=== PATIENT | male | born 1985 | race Caucasian/White ===

== ENCOUNTER 2023-02-03 08:01 | Emergency (ER) | payer MEDICAID ==
[~2023-02-03] VITALS: Ht 182.9 cm; Wt 83.6 kg
[~2023-02-03 08:01] MED LIST: CEPHALEXIN500 MG PO; DOXYCYCLINE HY100 MG PO; LAMICTAL25 MG PO; NORCO 5-325 TA1 EACH PO; WELLBUTRIN XL150 MG PO; ZANTAC150 MG PO; ZOFRAN ODT8 MG SL; ZYRTEC10 MG PO
--- OUTSIDE RECORDS SUMMARY | 2023-02-03 08:05 | XMS ---
PreManage Notification: DEBI JACK [employer]airer Events No recent Security Events currently on file CRITERIA MET - [facility] - 2 Visits in 30 Days [address] PROVIDERS 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 Sebastián VISIT COUNT (12 MO.) 2 Davy Moraes [address] [place] [address] TOTAL 3 NOTE: Visits indicate total known visits. ED/UCC VISIT TRACKING (12 MO.) 02/03/2023 08:02 LEIGHA Huggins [place] TYPE: Emergency COMPLAINT: - WITHDRAWL SYMTPOMS 01/18/2023 09:00 Davy GREENE TYPE: Emergency DIAGNOSES: - Encounter for removal of sutures - Suture Removal 01/06/2023 02:26 Davy Laws [place] TYPE: Emergency DIAGNOSES: - Laceration without foreign body of unspecified part of neck, initial encounter - Unspecified fall, initial encounter - Laceration INPATIENT VISIT TRACKING (12 MO.) No inpatient visits to display in this time frame [email or web address]
[2023-02-03] MEDS ORDERED: METHADONE HCL10 MG PO (08:14)
[2023-02-03 09:03] VITALS: BP 120/84
== END 2023-02-03 09:05 | disposition home or self-care (01) ==
LOC: ED 08:01
DX: F11.93 Opioid use, unspecified with withdrawal (principal); F17.200 Nicotine dependence, unspecified, uncomplicated; Z88.0 Allergy status to penicillin; Z79.899 Other long term (current) drug therapy
CPT/HCPCS: 99283